=== PATIENT | female | born 1970 | race Caucasian/White ===

== ENCOUNTER 2019-03-22 12:51 | Emergency (ER) | payer MEDICAID, OTHER ==
[~2019-03-22] VITALS: Ht 406.4 cm; Wt 85.9 kg
[~2019-03-22 12:51] MED LIST: CETI-1 PO; EMOL396C TOP; METH4TAB81 PO; NORCO10T PO; ONDA4TAB6 PO; OXYC-134 PO; PERM60CR19 TP; SILV20CR13 TOP; VENL75TA PO
[2019-03-22 13:32] LABS: BASOPHILS # (AUTO) 0.1 X10'3 (0-0.2); BASOPHILS % (AUTO) 0.8 % (0-1); EOSINOPHILS # (AUTO) 0.3 X10'3 (0-0.9); EOSINOPHILS % (AUTO) 2.4 % (0-6); HEMATOCRIT 35.3 % (35.0-45.0); HEMOGLOBIN 11.5 g/dl (12.0-16.0); LYMPHOCYTES # (AUTO) 2.5 X10'3 (1.1-4.8); LYMPHOCYTES % (AUTO) 21.6 % (21-51); MEAN CORPUSCULAR HGB CONC 32.6 g/dL (33.0-36.5); MEAN CORPUSCULAR VOLUME 76.7 FL (78-98); MEAN PLATELET VOLUME 8.1 FL (7.4-10.4); MONOCYTES % (AUTO) 9.1 % (2-12); NEUTROPHILS # (AUTO) 7.6 X10'3 (1.8-7.7); NEUTROPHILS % (AUTO) 66.1 % (42-75); PLATELET COUNT 293 X10'3 (140-440); RED CELL DISTRIBUTION WIDTH 15.3 % (11.5-14.5); WHITE BLOOD COUNT 11.4 X10'3 (4.5-11.0)
[2019-03-22 13:33] LABS: PARTIAL THROMBOPLASTIN TIME 28 SECONDS (22-32)
[2019-03-22 13:41] LABS: ALANINE AMINOTRANSFERASE 20 U/L (12-78); ALBUMIN/GLOBULIN RATIO 0.8 (1.1-1.5); ALKALINE PHOSPHATASE 138 IU/L (46-116); ANION GAP 8 (8-16); ASPARTATE AMINO TRANSFERASE 14 U/L (10-37); BILIRUBIN,TOTAL 0.2 MG/DL (0.1-1.0); BLOOD UREA NITROGEN 10 MG/DL (7-18); BUN/CREATININE RATIO 12.8 (6.6-38.0); CALCIUM 8.4 MG/DL (8.5-10.1); CHLORIDE 105 MMOL/L (99-107); CREATININE 0.78 MG/DL (0.40-0.90); GLUCOSE 102 MG/DL (70-104); POTASSIUM 3.5 MMOL/L (3.5-5.1); SODIUM 139 MMOL/L (135-145); TOTAL CARBON DIOXIDE 25.6 MMOL/L (24-32); eGFR 79 ML/MIN
[2019-03-22] MEDS ORDERED: meclizine 12.5mg tablet PO ONE (13:50)
[2019-03-22 14:15] VITALS: BP 134/74
[2019-03-22] MEDS ORDERED: MECL12.584 PO (14:37)
[2019-03-22] MEDS ORDERED: diphenhydrAMINE 25mg capsule PO ONE (16:10)
== END 2019-03-22 15:16 | disposition home or self-care (01) ==
LOC: ER 12:52
DX: H81.10 Benign paroxysmal vertigo, unspecified ear (principal); G43.909 Migraine, unspecified, not intractable, without status migrainosus; K21.9 Gastro-esophageal reflux disease without esophagitis; G89.29 Other chronic pain; Z90.49 Acquired absence of other specified parts of digestive tract; Z98.51 Tubal ligation status; Z98.890 Other specified postprocedural states; Z56.0 Unemployment, unspecified; Z88.6 Allergy status to analgesic agent; Z88.8 Allergy status to other drugs, medicaments and biological substances; Z79.899 Other long term (current) drug therapy
CPT/HCPCS: 36415; 71045; 80053; 84484; 85025; 85610; 85730; 93005; 99284; J8597

== ENCOUNTER 2019-08-27 21:42 | Emergency (ER) | payer MEDICAID, OTHER ==
[~2019-08-27] VITALS: Ht 177.8 cm; Wt 90.0 kg
[~2019-08-27 21:42] MED LIST changes: +MECL12.584 PO
[2019-08-27 21:47] VITALS: BP 133/97
[2019-08-27] MEDS ORDERED: SULF1TAB49 PO (22:26)
== END 2019-08-27 22:37 | disposition home or self-care (01) ==
LOC: ER 21:42
DX: L03.115 Cellulitis of right lower limb (principal); G43.909 Migraine, unspecified, not intractable, without status migrainosus; K21.9 Gastro-esophageal reflux disease without esophagitis; G89.29 Other chronic pain; M54.9 Dorsalgia, unspecified; F17.200 Nicotine dependence, unspecified, uncomplicated; Z90.49 Acquired absence of other specified parts of digestive tract; Z98.51 Tubal ligation status; Z56.0 Unemployment, unspecified; Z88.8 Allergy status to other drugs, medicaments and biological substances
CPT/HCPCS: 99283

== ENCOUNTER 2019-09-16 03:24 | Emergency (ER) | payer MEDICAID, OTHER ==
[~2019-09-16] VITALS: Ht 177.8 cm; Wt 90.9 kg
[2019-09-16 03:34] VITALS: BP 134/91
[2019-09-16] MEDS ORDERED: dexamethasone sod phosphate 10mg/ml inj PO STA (04:04)
[2019-09-16] MEDS ORDERED: PRED20TA PO (04:21)
[2019-09-16] MEDS ORDERED: DOXY100C76 PO (04:21)
[2019-09-16] MEDS ORDERED: ondansetron 4mg rapidly disintigrating tab PO ONE (04:35)
[2019-09-16] MEDS ORDERED: DOXYCYCLINE 100MG CAPSULE PO STA (04:46)
== END 2019-09-16 05:22 | disposition home or self-care (01) ==
LOC: ER 03:25
DX: L30.9 Dermatitis, unspecified (principal); B95.8 Unspecified staphylococcus as the cause of diseases classified elsewhere; G43.909 Migraine, unspecified, not intractable, without status migrainosus; K21.9 Gastro-esophageal reflux disease without esophagitis; G89.29 Other chronic pain; F17.200 Nicotine dependence, unspecified, uncomplicated; Z90.49 Acquired absence of other specified parts of digestive tract; Z98.51 Tubal ligation status; Z56.0 Unemployment, unspecified; Z88.8 Allergy status to other drugs, medicaments and biological substances; Z88.5 Allergy status to narcotic agent; Z79.899 Other long term (current) drug therapy
CPT/HCPCS: 99284; J1100

== ENCOUNTER 2019-10-28 11:30 | Emergency (ER) | payer MEDICAID ==
[~2019-10-28] VITALS: Ht 175.3 cm; Wt 91.0 kg
[~2019-10-28 11:30] MED LIST changes: +DOXY100C76 PO
[2019-10-28 11:33] VITALS: BP 135/83
[2019-10-28] MEDS ORDERED: CLIN-90 PO (12:03)
== END 2019-10-28 12:11 | disposition home or self-care (01) ==
LOC: ER 11:30
DX: L03.114 Cellulitis of left upper limb (principal); L03.113 Cellulitis of right upper limb; L03.116 Cellulitis of left lower limb; L03.115 Cellulitis of right lower limb; L08.9 Local infection of the skin and subcutaneous tissue, unspecified; K21.9 Gastro-esophageal reflux disease without esophagitis; G89.29 Other chronic pain; F32.9 Major depressive disorder, single episode, unspecified; Z90.49 Acquired absence of other specified parts of digestive tract; Z98.51 Tubal ligation status; Z98.890 Other specified postprocedural states; Z56.0 Unemployment, unspecified; Z86.69 Personal history of other diseases of the nervous system and sense organs; Z88.8 Allergy status to other drugs, medicaments and biological substances; Z79.2 Long term (current) use of antibiotics; Z79.899 Other long term (current) drug therapy
CPT/HCPCS: 99283

== ENCOUNTER 2019-12-19 08:13 | Emergency (ER) | payer MEDICAID ==
[~2019-12-19] VITALS: Ht 177.8 cm; Wt 92.0 kg
[~2019-12-19 08:13] MED LIST changes: +CLIN-90 PO; +MECL-183 PO; -MECL12.584 PO
[2019-12-19] MEDS ORDERED: normal saline 1000ML IV soln IV ONE (08:25)
[2019-12-19] MEDS ORDERED: ketorolac trometh. 30mg/ml inj. IV ONE (08:30)
[2019-12-19] MEDS ORDERED: ipratropium/albuterol 3ml nebule NEB ONE (08:30)
[2019-12-19] MEDS ORDERED: methylPREDNISolone sod succ 125mg/2ml vial IV ONE (08:30)
[2019-12-19 08:55] LABS: BASOPHILS % (AUTO) 0.6 % (0-1); EOSINOPHILS % (AUTO) 0.1 % (0-6); HEMATOCRIT 34.5 % (35.0-45.0); HEMOGLOBIN 11.4 g/dl (12.0-16.0); LYMPHOCYTES # (AUTO) 0.3 X10'3 (1.1-4.8); LYMPHOCYTES % (AUTO) 4.1 % (21-51); MEAN CORPUSCULAR HEMOGLOBIN 26.2 PG (27.0-31.0); MEAN CORPUSCULAR HGB CONC 32.9 g/dL (33.0-36.5); MEAN CORPUSCULAR VOLUME 79.4 FL (78-98); MEAN PLATELET VOLUME 7.8 FL (7.4-10.4); MONOCYTES # (AUTO) 0.6 X10'3 (0-0.9); MONOCYTES % (AUTO) 7.2 % (2-12); NEUTROPHILS # (AUTO) 6.9 X10'3 (1.8-7.7); PLATELET COUNT 247 X10'3 (140-440); RED BLOOD COUNT 4.35 X10'6 (4.20-5.60); RED CELL DISTRIBUTION WIDTH 15.2 % (11.5-14.5); WHITE BLOOD COUNT 7.8 X10'3 (4.5-11.0)
[2019-12-19 09:17] LABS: ALANINE AMINOTRANSFERASE 21 U/L (12-78); ALBUMIN 3.3 G/DL (3.4-5.0); ALBUMIN/GLOBULIN RATIO 0.7 (1.1-1.5); ALKALINE PHOSPHATASE 129 IU/L (46-116); ANION GAP 8 (8-16); ASPARTATE AMINO TRANSFERASE 16 U/L (10-37); BILIRUBIN,TOTAL 0.3 MG/DL (0.1-1.0); BLOOD UREA NITROGEN 8 MG/DL (7-18); BUN/CREATININE RATIO 8.3 (6.6-38.0); CALCIUM 8.4 MG/DL (8.5-10.1); CHLORIDE 100 MMOL/L (99-107); CREATININE 0.96 MG/DL (0.40-0.90); GLUCOSE 132 MG/DL (70-104); POTASSIUM 3.5 MMOL/L (3.5-5.1); SODIUM 135 MMOL/L (135-145); TOTAL CARBON DIOXIDE 26.6 MMOL/L (24-32); TOTAL PROTEIN 7.9 G/DL (6.4-8.2); eGFR 62 ML/MIN
[2019-12-19] MEDS ORDERED: PRED20TA PO (10:41)
[2019-12-19] MEDS ORDERED: ALBU6.7H9 INH (10:41)
[2019-12-19] MEDS ORDERED: AZIT250T2 PO (10:41)
[2019-12-19 12:15] VITALS: BP 133/77
== END 2019-12-19 12:20 | disposition home or self-care (01) ==
LOC: ER 08:14
DX: J06.9 Acute upper respiratory infection, unspecified (principal); J11.1 Influenza due to unidentified influenza virus with other respiratory manifestations; M25.551 Pain in right hip; M25.552 Pain in left hip; G43.909 Migraine, unspecified, not intractable, without status migrainosus; K21.9 Gastro-esophageal reflux disease without esophagitis; G89.29 Other chronic pain; F32.9 Major depressive disorder, single episode, unspecified; Z90.49 Acquired absence of other specified parts of digestive tract; Z98.51 Tubal ligation status; Z90.89 Acquired absence of other organs; Z98.890 Other specified postprocedural states; Z56.0 Unemployment, unspecified; Z88.8 Allergy status to other drugs, medicaments and biological substances; Z79.899 Other long term (current) drug therapy
CPT/HCPCS: 36415; 71045; 80053; 83605; 85025; 87040; 87502; 87503; 93005; 94640; 96374; 96375; 99284; J1885; J2930; J7030; 94760

== ENCOUNTER 2020-05-07 21:46 | Emergency (ER) | payer MEDICAID ==
[~2020-05-07] VITALS: Ht 177.8 cm; Wt 84.1 kg
[~2020-05-07 21:46] MED LIST changes: +ALBU6.7H9 INH; -CLIN-90 PO; +CLIN-97 PO
[2020-05-07] MEDS ORDERED: proCHLORperazine 10 MG/2 ml inj IV ONE (22:40)
[2020-05-07] MEDS ORDERED: LORazepam 2 mg/ml vial IV ONE (22:40)
[2020-05-07] MEDS ORDERED: normal saline 1000ML IV soln IVB ONE (22:40)
[2020-05-07 22:49] LABS: EOSINOPHILS # (AUTO) 0.2 X10'3 (0-0.9); HEMOGLOBIN 12.4 g/dl (12.0-16.0); MONOCYTES # (AUTO) 0.8 X10'3 (0-0.9); MONOCYTES % (AUTO) 5.9 % (2-12)
[2020-05-07 22:51] LABS: BASOPHILS # (AUTO) 0.1 X10'3 (0-0.2); BASOPHILS % (AUTO) 1.1 % (0-1); EOSINOPHILS % (AUTO) 1.6 % (0-6); HEMATOCRIT 38.6 % (35.0-45.0); LYMPHOCYTES # (AUTO) 5.2 X10'3 (1.1-4.8); LYMPHOCYTES % (AUTO) 39.5 % (21-51); MEAN CORPUSCULAR HEMOGLOBIN 24.4 PG (27.0-31.0); MEAN CORPUSCULAR VOLUME 76.3 FL (78-98); MEAN PLATELET VOLUME 8.5 FL (7.4-10.4); NEUTROPHILS # (AUTO) 6.9 X10'3 (1.8-7.7); NEUTROPHILS % (AUTO) 51.9 % (42-75); PLATELET COUNT 334 X10'3 (140-440); RED BLOOD COUNT 5.06 X10'6 (4.20-5.60); RED CELL DISTRIBUTION WIDTH 15.5 % (11.5-14.5); WHITE BLOOD COUNT 13.3 X10'3 (4.5-11.0)
[2020-05-07 22:59] LABS: ALANINE AMINOTRANSFERASE 31 U/L (12-78); ALBUMIN 3.6 G/DL (3.4-5.0); ALBUMIN/GLOBULIN RATIO 0.7 (1.1-1.5); ALKALINE PHOSPHATASE 165 IU/L (46-116); ANION GAP 13 (8-16); ASPARTATE AMINO TRANSFERASE 24 U/L (10-37); BILIRUBIN,TOTAL 0.1 MG/DL (0.1-1.0); BLOOD UREA NITROGEN 18 MG/DL (7-18); BUN/CREATININE RATIO 14.2 (6.6-38.0); CALCIUM 10.1 MG/DL (8.5-10.1); CHLORIDE 102 MMOL/L (99-107); CREATININE 1.27 MG/DL (0.40-0.90); GLUCOSE 159 MG/DL (70-104); POTASSIUM 3.6 MMOL/L (3.5-5.1); SODIUM 136 MMOL/L (135-145); TOTAL CARBON DIOXIDE 21.4 MMOL/L (24-32); TOTAL PROTEIN 8.5 G/DL (6.4-8.2); eGFR 45 ML/MIN
[2020-05-07] MEDS ORDERED: diazepam inj 5 MG/ML inj. IV ONE (23:05)
[2020-05-07 23:08] LABS: LIPASE 179 U/L (73-393); TROPONIN I < 0.04 NG/ML (0.0-0.05)
[2020-05-08] MEDS ORDERED: MECL-184 PO (00:05)
[2020-05-08] MEDS ORDERED: meclizine 12.5mg tablet PO ONE (00:05)
[2020-05-08] MEDS ORDERED: PRED20TA PO (01:10)
[2020-05-08] MEDS ORDERED: methylPREDNISolone sod succ 125mg/2ml vial IV ONE (01:10)
[2020-05-08] MEDS ORDERED: diazepam 5mg tablet PO ONE (01:20)
[2020-05-08 01:26] VITALS: BP 128/78
--- NOTE | 2020-05-08 02:12 | NUR ---
pt left without Rx. Called the pt and her sister is coming to get the meds
== END 2020-05-08 02:02 | disposition home or self-care (01) ==
LOC: ER 21:48
DX: R42 Dizziness and giddiness (principal); R11.2 Nausea with vomiting, unspecified; G43.909 Migraine, unspecified, not intractable, without status migrainosus; K21.9 Gastro-esophageal reflux disease without esophagitis; G89.29 Other chronic pain; F32.9 Major depressive disorder, single episode, unspecified; Z86.69 Personal history of other diseases of the nervous system and sense organs; Z90.49 Acquired absence of other specified parts of digestive tract; Z98.51 Tubal ligation status; Z98.890 Other specified postprocedural states; Z56.0 Unemployment, unspecified; Z88.8 Allergy status to other drugs, medicaments and biological substances; Z79.899 Other long term (current) drug therapy
CPT/HCPCS: 36415; 70450; 80053; 82948; 83690; 84484; 85025; 93005; 96361; 96374; 96375; 99285; J0780; J2060; J2930; J7030; J8597

== ENCOUNTER 2024-01-30 05:39 | Day surgery (SDC) | payer OTHER, MEDICAID ==
[2024-01-26 15:47] LABS: BASOPHILS # (AUTO) 0.1 X10'3 (0-0.2); BASOPHILS % (AUTO) 0.7 % (0-1); EOSINOPHILS # (AUTO) 0.2 X10'3 (0-0.9); EOSINOPHILS % (AUTO) 2.2 % (0-6); LYMPHOCYTES # (AUTO) 2.9 X10'3 (1.1-4.8); LYMPHOCYTES % (AUTO) 32.2 % (21-51); MEAN CORPUSCULAR HGB CONC 33.8 g/dL (33.0-36.5); MONOCYTES # (AUTO) 0.6 X10'3 (0-0.9); MONOCYTES % (AUTO) 6.2 % (2-12); NEUTROPHILS # (AUTO) 5.3 X10'3 (1.8-7.7); NEUTROPHILS % (AUTO) 58.7 % (42-75); PRE OP HEMATOCRIT 41.2 % (35.0-45.0); PRE OP HEMOGLOBIN 13.9 g/dL (12.0-16.0); PRE OP PLATELET COUNT 298 X10'3 (140-440); PRE OP WHITE BLOOD COUNT 9.1 10'3 (4.8-10.8); RED BLOOD COUNT 4.96 X10'6 (4.20-5.60); RED CELL DISTRIBUTION WIDTH 14.2 % (11.5-14.5)
[2024-01-26 16:08] LABS: ALBUMIN 3.7 G/DL (3.4-5.0); ALBUMIN/GLOBULIN RATIO 0.7 (1.1-1.5); ALKALINE PHOSPHATASE 153 IU/L (46-116); BLOOD UREA NITROGEN 12 MG/DL (7-18); CALCIUM 9.2 MG/DL (8.5-10.1); CHLORIDE 101 MMOL/L (99-107); CREATININE 0.86 MG/DL (0.40-0.90); PRE OP ALT 44 U/L (30-65); PRE OP ANION GAP 8 (8-16); PRE OP AST 34 U/L (10-37); PRE OP BILIRUB, TOTAL 0.3 MG/DL (0.0-1.0); PRE OP GLUCOSE 96 MG/DL (70-104); PRE OP SODIUM 139 MMOL/L (135-145); TOTAL CARBON DIOXIDE 29.6 MMOL/L (24-32); TOTAL PROTEIN 8.8 G/DL (6.4-8.2); eGFR 69 ML/MIN
[2024-01-30] VITALS (8 sets, daily range): BP systolic 119–148; BP diastolic 80–98; PULSE 72–88; RESP 12–18; TEMP 97.4; O2SAT 18–99
[~2024-01-30] VITALS: Ht 177.8 cm; Wt 97.4 kg
[~2024-01-30 05:39] MED LIST changes: +ACET325C6 PO; -ALBU6.7H9 INH; +BOTOX; -CETI-1 PO; -CLIN-97 PO; -DOXY100C76 PO; -EMOL396C TOP; +EREN70AU2 SUBCUT; -MECL-183 PO; -METH4TAB81 PO; -NORCO10T PO; +OMEP40CA21 PO; -ONDA4TAB6 PO; -OXYC-134 PO; -PERM60CR19 TP; -SILV20CR13 TOP
[2024-01-30] MEDS: cefazolin 2gm/D5W 100mL 100 ML IV ONE (06:26)
[2024-01-30] MEDS: famotidine 20mg tablet PO ONE (06:26)
[2024-01-30] MEDS: ringers solution, lacted 1,000 ML IV SCH (06:27)
[2024-01-30] MEDS ORDERED: ondansetron/PF 4mg/2ml inj ONE (07:22)
[2024-01-30] MEDS ORDERED: sevoflurane 250ml liquid IH ONE (07:22)
[2024-01-30] MEDS ORDERED: fentaNYL/PF 50MCG/1 ML 2ML syringe ONE (07:28)
[2024-01-30] MEDS ORDERED: midazolam 1 mg/ML 2ml injection ONE (07:29)
[2024-01-30] MEDS ORDERED: propofol inj 20 ML IV ONE (07:35)
[2024-01-30] MEDS ORDERED: LIDOcaine 2% (20mg/ml) 5ml vial ONE (07:35)
[2024-01-30] MEDS ORDERED: dexamethasone sod phosphate 4mg/ml inj. ONE (07:41)
[2024-01-30] MEDS: BUPIVAcaine/PF 2.5mg/ml (0.25%) 10ml vial ONE (08:01)
[2024-01-30] MEDS ORDERED: ringers solution, lacted 1,000 ML IV SCH (08:05)
[2024-01-30] MEDS ORDERED: labetalol 20mg/4ml (5mg/ml) syringe IV PRN (08:05)
[2024-01-30] MEDS ORDERED: enalaprilat dihydrate 2.5mg/2ml vial IV PRN (08:05)
[2024-01-30] MEDS ORDERED: proCHLORperazine 10 MG/2 ml inj IV PRN (08:05)
[2024-01-30] MEDS ORDERED: ketorolac trometh. 30mg/ml inj. ONE (08:27)
[2024-01-30] MEDS: morphine 4 MG/ML inj SYRINge IV PRN (08:50)
[2024-01-30] MEDS: ondansetron/PF 4mg/2ml inj IV PRN (08:50)
[2024-01-30] MEDS: morphine 2 MG/ML inj. syringe IV PRN (09:15)
== END 2024-01-30 09:42 | disposition home or self-care (01) ==
LOC: PAS 05:39
PROVIDERS: ATTEND Surgery
DX: R89.7 Abnormal histological findings in specimens from other organs, systems and tissues (principal); E66.9 Obesity, unspecified; E78.5 Hyperlipidemia, unspecified; F41.9 Anxiety disorder, unspecified; F32.A Depression, unspecified; G43.909 Migraine, unspecified, not intractable, without status migrainosus; F17.210 Nicotine dependence, cigarettes, uncomplicated; Z79.899 Other long term (current) drug therapy; Z90.49 Acquired absence of other specified parts of digestive tract; Z90.89 Acquired absence of other organs; Z98.51 Tubal ligation status; Z68.30 Body mass index [BMI] 30.0-30.9, adult; Z91.040 Latex allergy status; Z88.8 Allergy status to other drugs, medicaments and biological substances
CPT/HCPCS: 19301; 36415; 80053; 82948; 85025; 93005; J0690; J1100; J1885; J2250; J2270; J2405; J2704; J3010; J3490; J7030; J7120; Z7506; Z7508; Z7512; A4215; A4618; A6449; A7000